=== PATIENT | male | born 1990 | race Caucasian/White ===

== ENCOUNTER 2018-01-30 15:10 | Emergency (ER) | payer OTHER ==
[~2018-01-30] VITALS: Ht 175.3 cm; Wt 65.0 kg
[2018-01-30] MEDS ORDERED: NO HOME MEDS (15:25)
[2018-01-30] MEDS ORDERED: ACET1TAB12 PO (16:34)
[2018-01-30 16:58] VITALS: BP 131/70
== END 2018-01-30 17:00 | disposition home or self-care (01) ==
LOC: ER 15:11 → EEVIPCON 15:11 → ER 17:00
DX: S92.001A Unspecified fracture of right calcaneus, initial encounter for closed fracture (principal); Z60.2 Problems related to living alone; Z56.0 Unemployment, unspecified; Z88.8 Allergy status to other drugs, medicaments and biological substances; Z79.899 Other long term (current) drug therapy; X58.XXXA Exposure to other specified factors, initial encounter; Y93.89 Activity, other specified; Y92.89 Other specified places as the place of occurrence of the external cause; Y99.8 Other external cause status
CPT/HCPCS: 29515; 73700; 99284